=== PATIENT | female | born 1955 | race Caucasian/White ===

== ENCOUNTER 2016-11-24 16:07 | Outpatient (CLI) | payer OTHER ==
--- NOTE | 2016-11-24 17:31 | DIAGNOSTIC IMAGING REPORT ---
PROCEDURE: MR CERVICAL SPINE W/O CONT INDICATION: CERVICAL RADICULOPATHY TECHNIQUE: Noncontrast T1, T2, and STIR sagittal images. T2 and gradient axial images. COMPARISON: None. FINDINGS: Spinal cord is normal in size and signal intensity. C1-2: Normal. C2-3: Normal. C3-4: Normal. C4-5: Normal. C5-6: At C5-6 there is spondylosis with an osteophytic ridge and uncinate process hypertrophy with bilateral foraminal encroachment. C6-7: At C6-7 there is spondylosis with an osteophytic ridge and uncinate process hypertrophy with bilateral foraminal encroachment. C7-T1: Normal. IMPRESSION: 1. 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
== END 2016-11-24 23:00 ==
LOC: MRI SRH 16:07
DX: M47.22 Other spondylosis with radiculopathy, cervical region (principal); M25.78 Osteophyte, vertebrae